=== PATIENT | male | born 1955 | race Caucasian/White ===

== ENCOUNTER → 2022-10-12 | Outpatient (CLI) | payer OTHER ==
[2022-10-12 12:20] LABS: CHOLESTEROL 152 mg/dL (<200); HDL CHOLESTEROL 54 mg/dL (29-71); LDL DIRECT 80 mg/dL (0-99); TRIGLYCERIDES 143 mg/dL (30-200)
== END | disposition home or self-care (01) ==
LOC: LAB 08:12
PROVIDERS: ATTEND Student in an Organized Health Care Education/Training Program
DX: E78.5 Hyperlipidemia, unspecified (principal)
CPT/HCPCS: 36415; 80061

== ENCOUNTER → 2023-01-18 | Outpatient (CLI) | payer OTHER ==
[2023-01-18 12:29] LABS: CHOLESTEROL 150 mg/dL (<200); HDL CHOLESTEROL 46 mg/dL (29-71); LDL DIRECT 76 mg/dL (0-99); TRIGLYCERIDES 110 mg/dL (30-200)
== END | disposition home or self-care (01) ==
LOC: LAB 08:24
PROVIDERS: ATTEND Student in an Organized Health Care Education/Training Program
DX: E78.5 Hyperlipidemia, unspecified (principal)
CPT/HCPCS: 36415; 80061

== ENCOUNTER → 2023-05-26 | Outpatient (CLI) | payer OTHER ==
[2023-05-26 12:14] LABS: CHOLESTEROL 139 mg/dL (<200); HDL CHOLESTEROL 49 mg/dL (29-71); LDL DIRECT 78 mg/dL (0-99); TRIGLYCERIDES 77 mg/dL (30-200)
== END | disposition home or self-care (01) ==
LOC: LAB 08:16
PROVIDERS: ATTEND Student in an Organized Health Care Education/Training Program
DX: E78.5 Hyperlipidemia, unspecified (principal)
CPT/HCPCS: 36415; 80061

== ENCOUNTER → 2023-11-22 | Outpatient (CLI) | payer OTHER ==
[2023-11-22 12:50] LABS: CHOLESTEROL 176 mg/dL (<200); HDL CHOLESTEROL 61 mg/dL (29-71); LDL DIRECT 96 mg/dL (0-99); TRIGLYCERIDES 168 mg/dL (30-200)
== END | disposition home or self-care (01) ==
LOC: LAB 11:16
PROVIDERS: ATTEND Student in an Organized Health Care Education/Training Program
DX: E78.5 Hyperlipidemia, unspecified (principal)
CPT/HCPCS: 36415; 80061